=== PATIENT | male | born 1955 | race Asian ===

== ENCOUNTER 2018-05-27 10:48 | Emergency (ER) | payer SELFPAY ==
[2018-05-27] MEDS ORDERED: NS 1,000 ML IV ONE (11:30)
--- NOTE | 2018-05-27 11:36 | EDPHY ---
H & P Stated Complaint: dysuria bilat flank pain and fevers Time Seen by Provider: 05/27/18 11:30 HPI/ROS: HPI: This is a 63-year-old male who presents with Chief Complaint: dysuria bilat flank pain and fevers Location: Bilateral flank Quality: Pain and dysuria Duration: 4-5 days Signs and Symptoms: + subjective fever, no nausea, no vomiting, no hematemesis, no blood in stool, no abdominal bloating, no diarrhea, no back pain, + urinary hesitancy, + burning with urination, no testicular/groin pain, no indigestion, no chest pain, no shortness of breath Timing: Acute, worsening Severity: Moderate to severe Context: Patient presents accompanied by family member with complaints of burning with urination and urinary hesitancy for the last 4-5 days. He reports in the last 2-3 days he started to developed bilateral flank pain that is nonradiating in nature accompanied by subjective fevers, chills and fatigue. Patient denies any history of BPH or requiring any Flomax or Proscar. Patient reports that he has a decreased appetite but no nausea, vomiting, diarrhea. One month ago he was in [facility] and had a cardiac catheterization with cardiac stent placement x1. He currently denies any chest pain, shortness of breath, palpitations, cough, lower extremity edema. Denies concerns for STDs. Modifying Factors: None Comment: ROS: A comprehensive 10 system review of systems is otherwise negative aside from elements mentioned in the history of present illness. MEDICAL/SURGICAL/SOCIAL HISTORY: Medical history: Acute myocardial infarction. Does not take any regular medications. Surgical history: Cardiac catheterization with 1 stent placement and Timothy approximately 1 month ago. Social history: Current every day smoker. Family history noncontributory. CONSTITUTIONAL: Nontoxic-appearing, talkative, elderly [place] male, awake and alert, no obvious distress HEENT: Atraumatic and normocephalic, PERRL, EOMI. Nares patent; no rhinorrhea; no nasal mucosal edema. Tympanic membranes clear. Oropharynx clear, no exudate and moist pink mucosa. Airway patent. No lymphadenopathy. No meningismus. Cardiovascular: Normal S1/S2, regular rate, regular rhythm, without murmur rub or gallop. PULMONARY/CHEST: Symmetrical and nontender. Clear to auscultation bilaterally. Good air movement. No accessory muscle usage. ABDOMEN: Soft, nondistended, nontender, no rebound, no guarding, no peritoneal signs, no masses or organomegaly. Bilateral CVAT. EXTREMITIES: 2/2 pulses, strength 5/5, no deformities, no clubbing, no cyanosis or edema. NEUROLOGICAL: no focal neuro deficits. GCS 15. SKIN: Warm and dry, no erythema. no rash. Good capillary refill. Source: Patient, Family, Work Order Clerk Exam Limitations: Language barrier (Hungarian) - Personal History Current Tetanus Diphtheria and Acellular Pertussis (TDAP): No - Medical/Surgical History Hx Asthma: No Hx Chronic Respiratory Disease: No Hx Diabetes: No Hx Cardiac Disease: Yes Hx Renal Disease: No Hx Cirrhosis: No Hx Alcoholism: No Hx HIV/AIDS: No Hx Splenectomy or Spleen Trauma: No Other PMH: ? heart surg in [facility] - Social History Smoking Status: Current every day smoker Constitutional: Initial Vital Signs Temperature (C) 37.3 C 05/27/18 10:52 Heart Rate 90 05/27/18 10:52 Respiratory Rate 17 05/27/18 10:52 Blood Pressure 115/86 H 05/27/18 10:52 O2 Sat (%) 94 05/27/18 10:52 O2 Delivery Mode Room Air Allergies/Adverse Reactions: No Known Allergies Allergy (Unverified 05/27/18 10:52) Home Medications: Medication Instructions Recorded Ciprofloxacin [Cipro] 500 mg PO BID 14 Days #28 tab 05/27/18 Ibuprofen 05/27/18 Medical Decision Making ED Course/Re-evaluation: Vital signs reviewed and stable upon arrival. IV, laboratory studies, CT abdomen and pelvis scan ordered 1140: Urinalysis is consistent with infection; sent for urine culture; IV Rocephin 2 g given Labs reviewed. Laboratory studies showed WBC of 7 K but a left shift, H&H 11.9/ 34.2, no lactic acidosis, creatinine 0.9. Long discussion with patient and he is adamantly refusing CT pelvis scan secondary to financial concerns. He understands he is to return immediately if any new or worsening symptoms. Patient is tolerating p.o. And has no signs of sepsis at this time. Also discussed admission for pyelonephritis and patient adamantly refuses again due to financial concerns. Will discharge patient home with prescription for Cipro times 14 days. No concern for STDs. This patient was seen under the supervision of my secondary supervising physician. I evaluated care for this patient independently. Discussed this patient with Dr. Pritchett who did not see the patient. Differential Diagnosis: Flank pain including but not limited to musculoskeletal causes, kidney stone, pyelonephritis, shingles, and intra-abdominal causes such as diverticulitis and appendicitis. - Data Points Laboratory Results: Laboratory Results 05/27/18 11:42 05/27/18 11:42 05/27/18 05/27/18 05/27/18 11:42 11:42 11:42 WBC 7.10 10^3/uL 10^3/uL (3.80-9.50) RBC 3.47 10^6/uL L 10^6/uL (4.40-6.38) Hgb 11.9 g/dL L g/dL (13.7-17.5) Hct 34.2 % L % (40.0-51.0) MCV 98.6 fL fL (81.5-99.8) MCH 34.3 pg H pg (27.9-34.1) MCHC 34.8 g/dL g/dL (32.4-36.7) RDW 12.6 % % (11.5-15.2) Plt Count 147 10^3/uL L 10^3/uL (150-400) MPV 9.6 fL fL (8.7-11.7) Neut % (Auto) 80.0 % H % (39.3-74.2) Lymph % (Auto) 12.7 % L % (15.0-45.0) [place] % (Auto) 6.2 % % (4.5-13.0) Eos % (Auto) 0.6 % % (0.6-7.6) Baso % (Auto) 0.1 % L % (0.3-1.7) Nucleat RBC Rel Count 0.0 % % (0.0-0.2) Absolute Neuts (auto) 5.68 10^3/uL 10^3/uL (1.70-6.50) Absolute Lymphs (auto) 0.90 10^3/uL L 10^3/uL (1.00-3.00) Absolute Monos (auto) 0.44 10^3/uL 10^3/uL (0.30-0.80) Absolute Eos (auto) 0.04 10^3/uL 10^3/uL (0.03-0.40) Absolute Basos (auto) 0.01 10^3/uL L 10^3/uL (0.02-0.10) Absolute Nucleated RBC 0.00 10^3/uL 10^3/uL (0-0.01) Immature Gran % 0.4 % % (0.0-1.1) Immature Gran # 0.03 10^3/uL 10^3/uL (0.00-0.10) VBG Lactic Acid 0.9 mmol/L mmol/L (0.7-2.1) Sodium 135 mEq/L mEq/L (135-145) Potassium 3.8 mEq/L mEq/L (3.5-5.2) Chloride 106 mEq/L mEq/L (97-110) Carbon Dioxide 21 mEq/l L mEq/l (22-31) Anion Gap 8 mEq/L mEq/L (6-14) BUN 11 mg/dL mg/dL (7-23) Creatinine 0.9 mg/dL mg/dL (0.7-1.3) Estimated GFR > 60 Glucose 131 mg/dL H mg/dL (70-100) Calcium 8.8 mg/dL mg/dL (8.5-10.4) Total Bilirubin 1.2 mg/dL mg/dL (0.1-1.4) Conjugated Bilirubin 0.3 mg/dL mg/dL (0.0-0.5) Unconjugated Bilirubin 0.9 mg/dL mg/dL (0.0-1.1) AST 38 IU/L IU/L (17-59) ALT 41 IU/L IU/L (21-72) Alkaline Phosphatase 111 IU/L IU/L (38-126) Total Protein 6.8 g/dL g/dL (6.3-8.2) Albumin 3.7 g/dL g/dL (3.5-5.0) Urine Color Urine Appearance Urine pH Ur Specific [place] Urine Protein Urine Ketones Urine Blood Urine Nitrate Urine Bilirubin Urine Urobilinogen Ur Leukocyte Esterase Urine RBC Urine WBC Ur Epithelial Cells Urine Bacteria Urine Mucus Urine Glucose 05/27/18 11:00 WBC RBC Hgb Hct MCV MCH MCHC RDW Plt Count MPV Neut % (Auto) Lymph % (Auto) [place] % (Auto) Eos % (Auto) Baso % (Auto) Nucleat RBC Rel Count Absolute Neuts (auto) Absolute Lymphs (auto) Absolute Monos (auto) Absolute Eos (auto) Absolute Basos (auto) Absolute Nucleated RBC Immature Gran % Immature Gran # VBG Lactic Acid Sodium Potassium Chloride Carbon Dioxide Anion Gap BUN Creatinine Estimated GFR Glucose Calcium Total Bilirubin Conjugated Bilirubin Unconjugated Bilirubin AST ALT Alkaline Phosphatase Total Protein Albumin Urine Color YELLOW Urine Appearance MODERATELY TURBID Urine pH 6.0 (5.0-7.5) Ur Specific [place] 1.006 (1.002-1.030) Urine Protein NEGATIVE (NEGATIVE) Urine Ketones NEGATIVE (NEGATIVE) Urine Blood 1+ H (NEGATIVE) Urine Nitrate POSITIVE H (NEGATIVE) Urine Bilirubin NEGATIVE (NEGATIVE) Urine Urobilinogen NEGATIVE EU EU (0.2-1.0) Ur Leukocyte Esterase 3+ H (NEGATIVE) Urine RBC 1-3 /hpf /hpf (0-3) Urine WBC 50-182 /hpf H /hpf (0-3) Ur Epithelial Cells TRACE /lpf /lpf (NONE-1+) Urine Bacteria 3+ /hpf H /hpf (NONE SEEN) Urine Mucus TRACE /lpf /lpf (NONE-1+) Urine Glucose NEGATIVE (NEGATIVE) Medications Given: Discontinued Medications Sodium Chloride (Ns) 1,000 mls @ 0 mls/hr IV ONCE ONE; Wide Open PRN Reason: Protocol Stop: 05/27/18 11:31 Last Admin: 05/27/18 11:48 Dose: 1,000 mls Ceftriaxone Sodium 2 gm/ (Sodium Chloride) 50 mls @ 100 mls/hr IV EDNOW ONE PRN Reason: Protocol Stop: 05/27/18 12:06 Last Admin: 05/27/18 12:26 Dose: 50 mls Departure - Departure Disposition: Home, Routine, Self-Care Clinical Impression: Lower urinary tract infection, acute Condition: Good Instructions: Urinary Tract Infection in Men (ED) Additional Instructions: Consume a minimum of 8-10 glasses of water or electrolyte fluid replacement drinks that include Gatorade, Powerade, Pedialyte. Take antibiotic as directed. Do not skip a dose and take all medications times. Take Tylenol 650 mg every 4 hr and/or ibuprofen 600 mg every 8 hr with food as needed for pain, fever. Please establish primary care at the [facility]. Return at once for any worsening symptoms or concerns. Referrals: [facility],. [Clinic] - As per Instructions Prescriptions: Ciprofloxacin [Cipro] 500 mg PO BID 14 Days #28 tab
[2018-05-27 11:52] LABS: PLATELET COUNT 147 10^3/uL (150-400)
[2018-05-27 12:58] VITALS: BP 112/65
== END 2018-05-27 12:59 | disposition home or self-care (01) ==
DX: N39.0 Urinary tract infection, site not specified (principal); E86.9 Volume depletion, unspecified
CPT/HCPCS: 96365; J0696